=== PATIENT | female | born 1990 | race Caucasian/White ===

== ENCOUNTER → 2021-05-22 | Outpatient (REF) | payer OTHER | LOC: M LAB REF 17:15 | PROVIDERS: ATTEND Physician Assistant | DX: N76.0 Acute vaginitis (principal) ==

== ENCOUNTER → 2021-05-23 | Outpatient (REF) | payer OTHER | LOC: M LAB REF 17:08 | PROVIDERS: ATTEND Physician Assistant | DX: J06.9 Acute upper respiratory infection, unspecified (principal) ==

== ENCOUNTER → 2022-03-19 | Outpatient (CLI) | payer OTHER | LOC: M WUC 14:48 | PROVIDERS: ATTEND Physician Assistant | DX: M79.641 Pain in right hand (principal) ==